=== PATIENT | female | born 1995 | race Caucasian/White ===

== ENCOUNTER 2017-03-09 20:47 | Emergency (ER) | payer MEDICAID ==
[~2017-03-09] VITALS: Ht 167.6 cm; Wt 84.0 kg
[~2017-03-09 20:47] MED LIST: MAC100 PO; PRENATAL1 TA4 PO; ZOF4 PO; ZOFI IV
[2017-03-09 22:16] VITALS: BP 123/66
== END 2017-03-09 22:17 | disposition home or self-care (01) ==
LOC: ED 20:47
DX: M54.5 Low back pain (principal); M54.6 Pain in thoracic spine; J06.9 Acute upper respiratory infection, unspecified; J02.9 Acute pharyngitis, unspecified; E03.9 Hypothyroidism, unspecified; J45.909 Unspecified asthma, uncomplicated; Z79.3 Long term (current) use of hormonal contraceptives; Z79.899 Other long term (current) drug therapy

== ENCOUNTER 2017-06-18 11:25 | Emergency (ER) | payer MEDICAID ==
[~2017-06-18] VITALS: Ht 167.6 cm; Wt 83.6 kg
[2017-06-18 13:52] VITALS: BP 125/61
== END 2017-06-18 13:30 | disposition home or self-care (01) ==
LOC: ED 11:25
DX: K21.9 Gastro-esophageal reflux disease without esophagitis (principal); J45.909 Unspecified asthma, uncomplicated

== ENCOUNTER 2018-02-16 11:56 | Emergency (ER) | payer MEDICAID ==
[~2018-02-16] VITALS: Ht 167.6 cm; Wt 79.4 kg
[2018-02-16 12:07] VITALS: BP 126/81; Ht 167.6 cm; Wt 79.4 kg
== END 2018-02-16 13:57 | disposition left against medical advice (07) ==
LOC: ED 11:56
DX: Z53.21 Procedure and treatment not carried out due to patient leaving prior to being seen by health care provider (principal)

== ENCOUNTER 2018-02-25 09:54 | Emergency (ER) | payer MEDICAID ==
[~2018-02-25] VITALS: Ht 167.6 cm; Wt 78.5 kg
[2018-02-25 10:03] VITALS: Ht 167.6 cm; Wt 78.5 kg
[2018-02-25 10:43] LABS: AMPHETAMINE QUAL UR NONE DETECTED (See below)
[2018-02-25 11:56] VITALS: BP 102/72
== END 2018-02-25 11:56 | disposition home or self-care (01) ==
LOC: ED 09:54
PROVIDERS: Emergency Medicine
DX: R51 Headache (principal); R11.0 Nausea; J45.909 Unspecified asthma, uncomplicated

== ENCOUNTER 2018-04-22 19:35 | Emergency (ER) | payer MEDICAID ==
[~2018-04-22] VITALS: Ht 167.6 cm; Wt 78.9 kg
[2018-04-22 19:40] VITALS: BP 126/74; Ht 167.6 cm; Wt 78.9 kg
== END 2018-04-22 20:38 | disposition home or self-care (01) ==
LOC: ED 19:35
DX: M62.830 Muscle spasm of back (principal); M62.838 Other muscle spasm; J45.909 Unspecified asthma, uncomplicated; E03.9 Hypothyroidism, unspecified
CPT/HCPCS: 20552; J2001

== ENCOUNTER 2018-06-11 12:35 | Emergency (ER) | payer MEDICAID ==
[~2018-06-11] VITALS: Ht 167.6 cm; Wt 80.3 kg
[2018-06-11 13:00] VITALS: Ht 167.6 cm; Wt 80.3 kg
[2018-06-11 15:12] LABS: BASOPHIL % 1.5 % (0-2); PLATELET COUNT 244 x10^3mcL (130-400); RED CELL DISTRIBUTION WIDTH 12.9 % (11.5-14.5)
[2018-06-11 15:21] LABS: CALCIUM 9.1 mg/dL (8.5-10.1); CARBON DIOXIDE 25.3 mmol/L (21-32); CHLORIDE SERUM 101 mmol/L (98-107); CREATININE SERUM 0.6 mg/dL (0.6-1.0); GFR1 > 60 mL/min; GLUCOSE SERUM 76 mg/dL (74-106); POTASSIUM SERUM 3.6 mmol/L (3.5-5.1); SODIUM SERUM 135 mmol/L (136-145)
[2018-06-11 15:26] LABS: ALBUMIN 3.5 g/dL (3.4-5.0); ALKALINE PHOSPHATASE 71 U/L (46-116); ALT/SGPT 31 U/L (14-59); AST/SGOT 19 U/L (15-37); BILIRUBIN TOTAL 0.4 mg/dL (0.20-1.00); LIPASE 160 IU/L (73-393); TOTAL PROTEIN, SERUM 7.9 g/dL (6.4-8.2)
[2018-06-11 17:05] VITALS: BP 111/85
== END 2018-06-11 17:05 | disposition home or self-care (01) ==
LOC: ED 12:35
PROVIDERS: Emergency Medicine
DX: O99.611 Diseases of the digestive system complicating pregnancy, first trimester (principal); O99.519 Diseases of the respiratory system complicating pregnancy, unspecified trimester; F41.9 Anxiety disorder, unspecified; E03.9 Hypothyroidism, unspecified; K92.9 Disease of digestive system, unspecified; Z3A.00 Weeks of gestation of pregnancy not specified
CPT/HCPCS: J2765; J7030; Q0092

== ENCOUNTER 2018-10-19 09:32 | Emergency (ER) | payer MEDICAID ==
[~2018-10-19] VITALS: Ht 167.6 cm; Wt 90.7 kg
[2018-10-19 09:47] VITALS: Ht 167.6 cm; Wt 90.7 kg
[2018-10-19 11:46] LABS: BASOPHIL % 0.3 % (0-2); PLATELET COUNT 224 x10^3mcL (130-400); RED CELL DISTRIBUTION WIDTH 13.6 % (11.5-14.5)
[2018-10-19 11:59] LABS: CALCIUM 8.8 mg/dL (8.5-10.1); CARBON DIOXIDE 23.6 mmol/L (21-32); CHLORIDE SERUM 105 mmol/L (98-107); CREATININE SERUM 0.4 mg/dL (0.6-1.0); GFR1 > 60 mL/min; GLUCOSE SERUM 72 mg/dL (74-106); SODIUM SERUM 137 mmol/L (136-145)
[2018-10-19 12:03] LABS: ALKALINE PHOSPHATASE 100 U/L (46-116); ALT/SGPT 24 U/L (14-59); AST/SGOT 17 U/L (15-37); BILIRUBIN TOTAL 0.2 mg/dL (0.20-1.00); TOTAL PROTEIN, SERUM 6.9 g/dL (6.4-8.2)
[2018-10-19 12:04] LABS: ALBUMIN 2.7 g/dL (3.4-5.0)
[2018-10-19 12:28] VITALS: BP 98/54
== END 2018-10-19 13:32 | disposition home or self-care (01) ==
LOC: ED 09:32
PROVIDERS: Emergency Medicine
DX: O23.43 Unspecified infection of urinary tract in pregnancy, third trimester (principal); E03.9 Hypothyroidism, unspecified; F41.9 Anxiety disorder, unspecified; Z86.19 Personal history of other infectious and parasitic diseases; Z3A.29 29 weeks gestation of pregnancy; J45.909 Unspecified asthma, uncomplicated
CPT/HCPCS: 36415; J7030; Q0092